=== PATIENT | male | born 1965 | race Caucasian/White ===

== ENCOUNTER 2018-01-18 07:12 | Outpatient (CLI) | payer OTHER ==
[2018-01-18] MEDS ORDERED: GADOBUTROL 10 MMOL/10 ML VIAL ONE (07:50)
[2018-01-18] MEDS ORDERED: GADOBUTROL 10 MMOL/10 ML VIAL IVP ONE (08:31)
--- NOTE | 2018-01-18 10:42 | MRI Report ---
Reason: LOWER BACK PAIN W/INCREASE NUMBENSS IN RT LEG TH Procedure Date: 01/18/2018 Accession Number: [id number] / [id number] Procedure: MRI - Lumbar Spine W/WO CPT Code: FULL RESULT: EXAM: MRI LUMBAR SPINE WITHOUT AND WITH CONTRAST EXAM DATE: 01/18/2018 08:47 AM. CLINICAL HISTORY: Low back pain with report of increasing numbness in the right leg. Also low back pain reportedly extends into the right leg. COMPARISONS: None. TECHNIQUE: Multiplanar, multisequence T1-weighted and fluid-sensitive sequences of the lumbar spine from T12 to S1 before and after administration of intravenous contrast. Other: None. IV contrast: 10 mL Gadavist. FINDINGS: Neurologic Structures: The conus terminates at T12-L1. The conus medullaris and cauda equina are unremarkable. Alignment: Minimal leftward convex asymmetric lower lumbar curve. Slight degenerative retrolisthesis of L3 on L4, L4 on L5 and possibly L5 on S1. Bone Marrow: Five [id number] lumbar vertebral bodies are assumed. No gross fractures or bone lesions. No bone marrow replacement or abnormal enhancement. Disk Levels/Facets: T12-L1: Unremarkable. L1-L2: Unremarkable. L2-L3: Unremarkable. L3-L4: Moderate degenerative disk space dehydration and narrowing with marginal spurring, circumferential disk bulge and additional prominent asymmetric right intraforaminal disk protrusion. Moderate right foraminal stenosis. Minimal central stenosis. Patent left foramen. Minimal facet hypertrophy may be present. L4-L5: Mild to moderate degenerative disk disease. Unremarkable facets. Shallow broad-based posterior disk protrusion with enhancing annular fissure with slight ventral thecal sac indentation but no significant central canal stenosis or nerve root impingement. Foraminal stenosis is minimal to mild on the right where there is a very shallow asymmetric right intraforaminal disk bulge. L5-S1: Moderate degenerative disk disease. Chronic type II degenerative endplate signal changes to the left of midline. Mild right moderately prominent left facet arthropathy. Shallow circumferential disk bulge with mild marginal spurring, asymmetric, more prominent to the left of midline. Patent central canal and right foramen. Moderate foraminal stenosis is present on the left. Spinal Canal: No enhancing masses within the spinal canal. No epidural abscess. Musculature: Normal. No edema, abnormal enhancement, or fatty atrophy. Other: None. IMPRESSION: 1. Degenerative changes are notable at L3-L4 including moderate right foraminal stenosis from intraforaminal disk protrusion with osteophyte. 2. Asymmetric degenerative changes at L4-L5 as noted above associated with minimal to mild right foraminal narrowing. 3. Moderate degenerative disk disease at L5-S1 with asymmetric left of midline disk osteophyte complex with moderately prominent degenerative foraminal stenosis on the left. 4. No evidence for infection or enhancing tumor. 5. Facet arthropathy is most prominent at L5-S1, left greater than right. Comment: The following findings are so common in adults without low back pain that while we report their presence, they must be interpreted with caution and in the context of the clinical situation. (Reference Higiniok et al, Spine 2001) Prevalence of findings in patients without low back pain: Disk degeneration (any evidence): 92% Disk desiccation/T2 signal loss: 83% Disk height loss: 56% Disk bulge: 64% Disk protrusion: 32% Annular tear/high intensity zone: 38% RADIA
== END 2018-01-18 07:13 | disposition home or self-care (01) ==
LOC: DI 07:12
PROVIDERS: ATTEND Nurse Practitioner Adult Health
DX: M51.36 Other intervertebral disc degeneration, lumbar region (principal); M51.26 Other intervertebral disc displacement, lumbar region; M51.37 Other intervertebral disc degeneration, lumbosacral region; M48.061 Spinal stenosis, lumbar region without neurogenic claudication; M47.9 Spondylosis, unspecified; M48.07 Spinal stenosis, lumbosacral region
CPT/HCPCS: 72158; A9585